=== PATIENT | female | born 1975 | race Hispanic/Latino ===

== ENCOUNTER 2019-11-18 08:04 | Emergency (ER) | payer OTHER, SELFPAY ==
[2019-11-18 08:15] VITALS: BP 146/88; PULSE 70; RESP 16; TEMP 36.2; O2SAT 99
--- NOTE | 2019-11-18 08:25 | ED.SKABFB ---
HPI - Skin/Abscess/Foreign Bdy General Chief complaint: Skin/Abscess/Foreign Body Stated complaint: Rash Time Seen by Provider: 11/18/19 08:19 Source: patient and RN notes reviewed Mode of arrival: ambulatory Limitations: no limitations History of Present Illness HPI narrative: Patient presents today with a 4-day history of pruritic rash to her extremities. It started out in the right antecubital fossa and forearm and has spread from there. No rash on the trunk or face. She has tried calamine lotion and hydrocortisone, which did provide some relief of itching. Denies shortness of breath or difficulty swallowing. Denies any new household products or known allergen exposure MD complaint: rash Related Data Home Medications Medication Instructions Recorded Confirmed No Home Medications 11/18/19 11/18/19 Allergies Allergy/AdvReac Type Severity Reaction Status Date / Time No Known Allergies Allergy Other Uncoded 11/18/19 08:20 Review of Systems Review of Systems: Narrative: CONSTITUTIONAL: Denies body aches, fever, chills, or sweats. EYES: Denies visual changes, redness, or discharge. ENT: Denies rhinorrhea, congestion, sore throat, or otalgia. CARDIOVASCULAR: Denies chest pain, palpitations, or edema. RESPIRATORY: Denies cough or dyspnea. GASTROINTESTINAL: Denies abdominal pain, nausea, vomiting, or diarrhea. GENITOURINARY: Denies dysuria or hematuria. SKIN: Denies wounds.+ Pruritic rash to extremities MUSCULOSKELETAL: Denies back pain, joint pain, or myalgia. NEUROLOGIC: Denies headache, numbness, tingling, or weakness. PSYCH: Denies depression or anxiety. PMFSH Past Medical History Medical History (Updated 11/18/19 @ 08:28 by Carrol Medina, BUDGET DIRECTOR, ) Delivery with history of Idiopathic pancreatitis Surgical History Surgical History (Updated 11/18/19 @ 08:27 by Carrol Medina, BUDGET DIRECTOR, ) History of cholecystectomy Social History Social History Gender identity (if verbalized by the patient): Female Comments At time of signature, I have reviewed and agree with nursing past medical, surgical, social and family history unless otherwise noted. Please see nursing chart for further information. There is no relevant family history pertinent to the presenting complaint Exam Narrative: Exam Narrative: GENERAL: Well-appearing, well-nourished, and in no acute distress. HEAD: Normocephalic, atraumatic. EYES: EOMI. No redness or drainage. Conjunctivae normal. ENT: Mucous membranes pink and moist. Nares clear. No rhinorrhea. TMs normal bilaterally. Throat normal. Uvula midline. NECK: Normal AROM. Supple. No lymphadenopathy. CHEST: No respiratory distress. Clear to auscultation. HEART: Regular rate and rhythm. No murmur appreciated. Normal peripheral pulses. ABDOMEN: Soft, nontender, nondistended, normal active bowel sounds. MUSCULOSKELETAL: No bony tenderness. EXTREMITIES: Normal range of motion. No edema. SKIN: Warm, dry. Faintly pink papular rash to bilateral forearms, upper arms, bilateral popliteal fossae. NEURO: No focal deficits. Alert and oriented x3. Gait steady. PSYCH: Normal affect. No signs of depression or anxiety. Course Vital Signs Vital signs: Vital Signs Temperature 97.1 F L 11/18/19 08:15 Pulse Rate 70 11/18/19 08:15 Respiratory Rate 16 11/18/19 08:15 Blood Pressure 146/88 H 11/18/19 08:15 Pulse Oximetry 99 11/18/19 08:15 Temperature 97.1 F L 11/18/19 08:15 Pulse Rate 70 11/18/19 08:15 Respiratory Rate 16 11/18/19 08:15 Blood Pressure 146/88 H 11/18/19 08:15 Pulse Oximetry 99 11/18/19 08:15 Reviewed. Pt has been instructed to follow up with her PCP regarding her elevated blood pressure today. MDM - Skin/Abscess/Foreign Bdy Differential Diagnosis Differential diagnosis: Likely abscess of skin or subcutaneous tissue, viral exanthem, urticaria, cellulitis, eczema, insect bites, impetigo and contact dermatitis Critical Care Ti
== END 2019-11-18 08:34 | disposition home or self-care (01) ==
PROVIDERS: Emergency Provider Nurse Practitioner
DX: L25.9 Unspecified contact dermatitis, unspecified cause (principal)
CPT/HCPCS: 99213; G0463

== ENCOUNTER 2021-07-09 11:27 | Emergency (ER) | payer OTHER, SELFPAY ==
[2021-07-09 11:39] VITALS: BP 125/91; PULSE 91; RESP 16; TEMP 36.7; O2SAT 99
--- NOTE | 2021-07-09 12:35 | ED.URI ---
HPI - URI/Sore Throat General Chief Complaint: Upper Respiratory Infection Stated Complaint: sore throat/cough/nasal congestion/henry/nausea Source: patient and family Mode of arrival: ambulatory Limitations: no limitations History of Present Illness HPI Narrative: Marla is a 45-year-old female patient who ambulated [facility] the [facility] today with complaint of nasal congestion, cough, and fever for 10 days. Patient states she had a sore throat that stopped last FridayJuly 03 . Patient has been taking NyQuil and [id number] cold medicines for symptoms without relief. Patient states she was feeling better then suddenly she is getting worse over the last two days. Patient had a negative Covid test this morning at the school. Patient denies shortness of breath. Patient denies ear pain. Patient states she is coughing up green mucus. MD elicited complaint: fever and cough Description of mucous: green Related Data Home Medications Medication Instructions Recorded Confirmed losartan 50 mg PO DAILY 07/09/21 07/09/21 metformin 500 mg PO DAILY 07/09/21 07/09/21 Allergies Allergy/AdvReac Type Severity Reaction Status Date / Time No Known Allergies Allergy Other Uncoded 07/09/21 11:46 Review of Systems Review of Systems: CONSTITUTIONAL: Denies body aches, chills, or sweats. + fever off and on EYES: Denies visual changes, redness, or discharge. ENT: Denies rhinorrhea, + congestion,+ sore throat,denies otalgia. CARDIOVASCULAR: Denies chest pain, palpitations, or edema. RESPIRATORY: + cough denies dyspnea. GASTROINTESTINAL: Denies abdominal pain, nausea, vomiting, or diarrhea. GENITOURINARY: Denies dysuria or hematuria. SKIN: Denies rash, itching, or wounds. MUSCULOSKELETAL: Denies back pain, joint pain, or myalgia. NEUROLOGIC: Denies headache, numbness, tingling, or weakness. PSYCH: Denies depression or anxiety. All systems reviewed & are unremarkable except as noted in HPI and below PMFSH Past Medical History Medical History Delivery with history of Idiopathic pancreatitis Surgical History Surgical History History of cholecystectomy Social History Social History Gender identity (if verbalized by the patient): Female Comments At time of signature, I have reviewed and agree with nursing past medical, surgical, social and family history unless otherwise noted. Please see nursing chart for further information. There is no relevant family history pertinent to the presenting complaint Exam Narrative: GENERAL: Well-appearing, well-nourished, and in no acute distress. HEAD: Normocephalic, atraumatic. EYES: EOMI. No redness or drainage. Conjunctivae normal. ENT: Mucous membranes pink and moist. Nares erythemic, boggy; clear rhinorrhea. TMs fluid filled, mild bulging, no erythema. Throat erythematous, post nasal drainage clear noted. Uvula midline; pain with palpation to left maxillary and frontal sinus, allergic shiners noted. NECK: Normal AROM. Supple. anterior cervical lymphadenopathy. CHEST: No respiratory distress. Clear to auscultation. MUSCULOSKELETAL: No bony tenderness. EXTREMITIES: Normal range of motion. No edema. SKIN: Warm, dry, no rash. Capillary refill normal. Normal skin turgor. NEURO: No focal deficits. Alert and oriented x3. Gait steady. PSYCH: Normal affect. No signs of depression or anxiety. Course Vital Signs Vital signs: Vital Signs Temperature 36.7 C 07/09/21 11:39 Pulse Rate 91 07/09/21 11:39 Respiratory Rate 16 07/09/21 11:39 Blood Pressure 125/91 H 07/09/21 11:39 Pulse Oximetry 99 07/09/21 11:39 Temperature 36.7 C 07/09/21 11:39 Pulse Rate 91 07/09/21 11:39 Respiratory Rate 16 07/09/21 11:39 Blood Pressure 125/91 H 07/09/21 11:39 Pulse Oximetry 99 07/09/21
== END 2021-07-09 12:50 | disposition home or self-care (01) ==
PROVIDERS: Emergency Provider Nurse Practitioner Family; PCP Physician Assistant
DX: J01.00 Acute maxillary sinusitis, unspecified (principal)
CPT/HCPCS: 99213; G0463

== ENCOUNTER 2021-11-11 15:31 | Emergency (ER) | payer OTHER, SELFPAY ==
--- NOTE | 2021-11-11 15:40 | ED.URI ---
HPI - URI/Sore Throat General Chief Complaint: Upper Respiratory Infection Stated Complaint: Cough,Wheezing Time Seen by Provider: 11/11/21 15:40 Source: patient and RN notes reviewed History of Present Illness HPI Narrative: Patient is a 46-year-old female who presents the urgent care with complaints of cough, runny nose, postnasal drainage and wheezing. Patient states that started on October 31 and her employer wanted her to get checked out . Patient states that everyone in the family has gone through cold-like symptoms. States that she has had intermittent low-grade fevers. Patient has been taking Tylenol and ibuprofen intermittently. Patient does have a history of childhood asthma which seems to worsen when she has upper respiratory infections. States that she feels she is wheezing at night. Denies of any difficulty breathing. No other acute complaints. No acute distress noted. Patient aware of the plan of care. Some parts of this dictation were generated by voice recognition software and may contain typographical and/or grammatical inaccuracies. Related Data Home Medications Medication Instructions Recorded Confirmed losartan 50 mg PO DAILY 07/09/21 11/11/21 metformin 1,000 mg PO BID 07/09/21 11/11/21 Allergies Allergy/AdvReac Type Severity Reaction Status Date / Time No Known Allergies Allergy Other Uncoded 07/09/21 11:46 Review of Systems Review of Systems: CONSTITUTIONAL: Reports of intermittent low-grade fevers EYES: Denies visual changes, redness, or discharge. ENT: Reports of rhinorrhea and postnasal drainage CARDIOVASCULAR: Denies chest pain, palpitations, or edema. RESPIRATORY: Reports of cough with wheezing GASTROINTESTINAL: Denies abdominal pain, nausea, vomiting, or diarrhea. GENITOURINARY: Denies dysuria or hematuria. SKIN: Denies rash or itching. MUSCULOSKELETAL: Denies back pain, joint pain, or myalgia. NEUROLOGIC: Denies headache, numbness, or weakness. PSYCHIATRIC: Denies anxiety or depression. All other systems reviewed are negative, except as documented in HPI. [facility] Past Medical History Medical History Delivery with history of Idiopathic pancreatitis Surgical History Surgical History History of cholecystectomy Social History Social History Gender identity (if verbalized by the patient): Female Comments At the time of my signature, I reviewed and agree with the nursing past medical, surgical, social, and family history. There is no relevant family history pertinent to the patient complaint. Exam Narrative: GENERAL: This is a well-nourished, well-developed patient, in no apparent distress. HEAD: normocephalic, atraumatic. Frontal sinus tenderness EYES: PERRL. Sclera clear/white. Vision is grossly intact. EARS: External ears normal, auditory canals clear and without drainage, TMs normal without perforation. Hearing grossly intact. NOSE: External nose normal with no obvious nasal discharge, nares without redness, no rhinorrhea. THROAT: Mucous membranes moist, posterior pharynx clear. Moderate postnasal drainage NECK: Neck supple, non-tender without lymphadenopathy, masses or thyromegaly. CARDIOVASCULAR: Regular rate and rhythm without murmurs, gallops, or rubs. RESPIRATORY: Clear to auscultation. Breath sounds equal bilaterally. No wheezes, rales, or rhonchi. SKIN: warm, intact with no suspicious lesions or rash, good texture and turgor. NEURO: awake, alert, and oriented to person, place and time. There were no obvious focal neurologic abnormalities. EXTREMITIES: No clubbing, cyanosis, or edema. Course Course Level of Care: [facility] Visit Vital Signs Vital signs: Vital Signs Temperature 98.8 F 11/11/21 15:44 Pulse Rate 96 11/11/21 15:44 Respiratory Rate 16 11/11/21 15:44 Blood Pressure 117
[2021-11-11 15:44] VITALS: BP 117/76; PULSE 96; RESP 16; TEMP 37.1; O2SAT 100
== END 2021-11-11 15:58 | disposition home or self-care (01) ==
PROVIDERS: Emergency Provider Nurse Practitioner Family; PCP Physician Assistant
DX: J40 Bronchitis, not specified as acute or chronic (principal); J06.9 Acute upper respiratory infection, unspecified; I10 Essential (primary) hypertension; E11.9 Type 2 diabetes mellitus without complications
CPT/HCPCS: 99213; G0463

== ENCOUNTER → 2022-11-22 09:34 | Outpatient (CLI) | payer OTHER, SELFPAY ==
--- NOTE | ~2022-11-22 | US_ITS ---
EXAMINATION: US pelvic complete DATE: 11/22/2022 10:22 INDICATION: Pelvic and abdominal pain. Fever. TECHNIQUE: Multiple transabdominal sonographic images of the pelvis were obtained. COMPARISON: CT abdomen and pelvis 06/26/2019 FINDINGS: The uterus measures 9.9 x 5.3 x 5.0 cm. There is no free fluid in the pelvis. The endometrial complex measures 6 in thickness. The ovaries are not visualized. IMPRESSION: 1. Normal uterus. 2. Ovaries not visualized. 3. Appendix not identified. Reviewed, dictated and finalized at location A. 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
--- NOTE | ~2022-11-22 | US_ITS ---
US abdomen limited INDICATION: Pyrexia. Status post cholecystectomy. Abdomen and pelvic pain. PROCEDURE: Realtime right upper abdominal ultrasound. COMPARISON: Ultrasound dated 06/27/2019 FINDINGS: The pancreas is normal without focal mass or pancreatic ductal dilation. Liver echotexture is normal without focal mass or intrahepatic biliary dilatation. There is normal directional flow i n the portal vein. Gallbladder surgically absent. Common bile duct measures 5 mm. IMPRESSION: 1: Unremarkable limited abdominal ultrasound. 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
== END ==
PROVIDERS: PCP Physician Assistant; Visit Provider Physician Assistant
DX: R50.9 Fever, unspecified (principal)
CPT/HCPCS: 76705; 76856

== ENCOUNTER 2023-05-11 15:29 | Emergency (ER) | payer BC, SELFPAY ==
[2023-05-11 15:37] VITALS: BP 117/67; PULSE 75; RESP 16; TEMP 36.7; O2SAT 99
--- NOTE | 2023-05-11 15:49 | ED.SKABFB ---
HPI - Skin/Abscess/Foreign Bdy General Chief complaint: Skin/Abscess/Foreign Body Stated complaint: Insect Bite Time Seen by Provider: 05/11/23 15:45 Source: patient Mode of arrival: ambulatory Limitations: no limitations History of Present Illness HPI narrative: Marla is a 47-year-old female patient presenting to the clinic today with complaints of an insect bite to her right upper leg. She reports that this occurred yesterday. Said the area is very itchy and is mildly painful when she is walking. Related Data Home Medications Medication Instructions Recorded Confirmed empagliflozin 25 mg tablet mg 05/11/23 05/11/23 (Jardiance) Allergies Allergy/AdvReac Type Severity Reaction Status Date / Time No Known Allergies Allergy Other Uncoded 05/11/23 15:50 Review of Systems Review of Systems: Pertinent positives per HPI. Patient denies any fever, chills, rash, headache, visual changes, dizziness, cough, runny nose, sore throat, shortness of breath, chest pain, palpitations, nausea, vomiting, diarrhea, constipation, abdominal pain, or any urinary issues. PMFSH Past Medical History Medical History Delivery with history of Idiopathic pancreatitis Surgical History Surgical History History of cholecystectomy Social History Social History Gender identity (if verbalized by the patient): Female Comments At the time of my signature, I reviewed and agree with the nursing past medical, surgical, social, and family history. There is no relevant family history pertinent to the patient complaint. Exam Narrative: General: Well-developed, well nourished, in no apparent distress Head: Normocephalic, atraumatic. Cardio: Regular rate and rhythm, s1 and s2 normal, no murmur appreciated. Resp: Clear to auscultation bilaterally, no rhonchi, rales, wheezing or rubs. Integumentary: [place], warm, and dry, insect sting to the right upper anterior distal leg just above knee-redness and swelling with induration measuring 14 cm by 14cm Course Course Emergency Course: Portions of this record may have been created with voice recognition software. Level of Care: [facility] Visit Vital Signs Vital signs: Vital Signs Temperature 36.7 C 05/11/23 15:37 Pulse Rate 75 05/11/23 15:37 Respiratory Rate 16 05/11/23 15:37 Blood Pressure 117/67 05/11/23 15:37 Pulse Oximetry 99 05/11/23 15:37 Oxygen Delivery Room Air 05/11/23 15:37 Temperature 36.7 C 05/11/23 15:37 Pulse Rate 75 05/11/23 15:37 Respiratory Rate 16 05/11/23 15:37 Blood Pressure 117/67 05/11/23 15:37 Pulse Oximetry 99 05/11/23 15:37 Oxygen Delivery Room Air 05/11/23 15:37 Vital signs reviewed MDM - Skin/Abscess/Foreign Bdy MDM Narrative Medical decision making narrative: At the time of visit patient is resting on the exam table. I suspect patient has a allergic reaction to an insect sting/bite. Will send in prescription for some prednisone and triamcinolone cream. Supportive measures were discussed with the patient she voiced understanding discharge instructions and agrees to treatment plan. Differential Diagnosis Differential diagnosis: Likely abscess of skin or subcutaneous tissue, cellulitis, eczema, insect bites, impetigo and contact dermatitis Discharge Plan Discharge Clinical Impression: Allergic reaction to insect sting Qualifiers: Encounter type: initial encounter Injury intent: accidental or unintentional Qualified Code(s): T63.481A - Toxic effect of venom of other arthropod, accidental (unintentional), initial encounter Patient Disposition: Home, Self-Care Condition: Stable Instructions: Antibiotic Form, Insect Bite or Sting (ED), General Allergic Reaction (ED) Additional Instructions: Apply t
== END 2023-05-11 15:58 | disposition home or self-care (01) ==
PROVIDERS: Emergency Provider Nurse Practitioner Family; PCP Physician Assistant
DX: T63.481A Toxic effect of venom of other arthropod, accidental (unintentional), initial encounter (principal)
CPT/HCPCS: 99213; G0463

== ENCOUNTER → 2023-10-01 13:31 | Outpatient (CLI) | payer OTHER, SELFPAY ==
--- NOTE | ~2023-10-01 | MM_ITS ---
EXAMINATION: MM screening iron BI w freddy HISTORY: Screening mammogram TECHNIQUE: Craniocaudal and mediolateral oblique 3-D tomosynthesis images were obtained and synthetic 2-D images were generated. Bilateral rotated lateral CC views. CAD analysis was submitted and interp reted. COMPARISON: No prior mammogram is available for comparison at this institution. BREAST PARENCHYMAL COMPOSITION: The breasts are heterogeneously dense, which may obscure small masses . FINDINGS: There is no evidence of suspicious mass, calcification, or architectural distortion to sugg est malignancy in either breast. IMPRESSION: 1. No mammographic evidence of malignancy. 2. Recommend routine screening mammography in one year. 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
== END ==
PROVIDERS: PCP Physician Assistant; Visit Provider Physician Assistant
DX: Z12.31 Encounter for screening mammogram for malignant neoplasm of breast (principal)
CPT/HCPCS: 77063; 77067

== ENCOUNTER 2023-10-21 13:15 | Outpatient (RCR) | payer OTHER, SELFPAY ==
--- NOTE | 2023-09-30 13:31 | OPREHPOC ---
Outpatient Therapy Plan of Care This is a Multidisciplinary Plan of Care that may contain components documented by all disciplines (PT, OT, and ST.) PT Problem 1 PT Problem #1 Knowledge Deficit PT Goal 1 Goal 1* indep with HEP 2* demonstrate correct position and body mechanics with exercises PT Problem 2 PT Problem #2 Pain PT Goal 1 Goal 1* pt report pain 4/10 at worst 2* pt report able to run 5K without an increase in pain 3* with sleeping, awaken 1x/night due to pain PT Problem 3 PT Problem #3 Impaired Strength PT Goal 1 Goal improve R scapular/thoracic strength to improve position of GH joint and decrease pain 1* pt stand with shoulders in correct alignment 2* prone scapular adduction x 20 reps with arm overhead 3* pt report able to do one baby feeding, without an increase in her pain
--- NOTE | 2023-09-30 13:31 | PTOPEVAL1 ---
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; she is tall and have to lean over; document in mobile computer station without UE support and has a high seat, so feel like she is leaning forward when typing; Reported Pain Level Pain Score Self Report R shoulder pain Additional Pain Score Comments pain range in the past week 0-9/10; posterior R shoulder; hurts so bad, have to stop running and move shoulder to get it to stop hurting; intermittent to elbow; R hand dominant increase pain: running, lie on R side, use arm, working and holding/caring for babies decrease pain: rest, ice, not use arm awaken from sleep due to pain 1-2x/night when roll towards R side; use a body pillow and lie on her L side to help the pain; saw a chiropractor last year for this; Assessment PT Clinical Summary Marla has the diagnosis of R shoulder pain. She reports onset about 1 year ago, increase with work and running. 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 She reports sleep and activity level is disrupted due to shoulder pain. With the evaluation: she has tenderness over bicepital groove and poor standing position of shoulder and trunk--rounded posture; Her R shoulder active ranges are WNL, with weakness over posterior shoulder/scapula. When running, she holds her elbow flexed and shoulder rounded, causing bicept tendonitis. Skilled PT is indicated for treatment of R shoulder impingement syndrome and biceps tendonitis. Modalities for pain and spasms,
--- NOTE | 2023-10-13 15:32 | PCPTNOTE ---
Patient cancelled today secondary to weather conditions.
--- NOTE | 2023-10-17 14:53 | PCPTNOTE ---
Deleted note set up to see pt and pt no showed visit.
--- NOTE | 2023-10-24 09:18 | PCPTNOTE ---
pt did not show for today's reeval appt; called pt and left voice message to call and reschedule if she needs additional PT, otherwise, will be d/c from PT.
--- NOTE | 2023-11-14 10:59 | PTOPDC ---
Assessment and note entered by Dacia Sun, PT Discharge Information Assessment Status Discharge - Pt Not Present Diagnosis R shoulder pain Onset about 1 year ago Assessment PT Clinical Summary Marla received the PT eval on Sep 30 and one treatment session. She called/canceled 1 and did not show for 2 appointments. She will be discharged at this time from PT services. The goals were not addressed. Plan of Care PT Services Indicated No
== END 2023-11-14 11:30 | disposition home or self-care (01) ==
LOC: ANHPT 13:15
PROVIDERS: Visit Provider Physician Assistant
DX: S46.911D Strain of unspecified muscle, fascia and tendon at shoulder and upper arm level, right arm, subsequent encounter (principal)
CPT/HCPCS: 97110; 97140; 97161; 97530; 99199

== ENCOUNTER 2024-09-01 08:53 | Emergency (ER) | payer OTHER, SELFPAY ==
--- NOTE | ~2024-09-01 | XR_ITS ---
XR abdomen/kub 1V Ordering provider: Nohemy Coombs NP History: . c/f kidney stone . Comparison: None. FINDINGS: BOWEL: Nonobstructive bowel gas pattern. ORGANOMEGALY: None. SIGNIFICANT PATHOLOGIC CALCIFICATIONS: Multiple left kidney stones. Possibility of a stone in the lef t upper ureter is not excluded. Follow-up advised. OTHER: No free air is seen under the diaphragm. IMPRESSION: NO ACUTE ABDOMINAL FINDINGS. Multiple left kidney stones with highly suggestive stone in the left upper ureter. Reviewed, dictated and finalized at location A. MANAGER IMPRESSION: NO ACUTE ABDOMINAL FINDINGS. Multiple left kidney stones with highly suggestive stone in the left upper uret er.
[2024-09-01 09:09] VITALS: BP 119/76; PULSE 67; RESP 19; TEMP 36.2; O2SAT 100
--- NOTE | 2024-09-01 09:56 | ED_ITS ---
HPI - Female Genitourinary General Stated complaint: urinary issue Time Seen by Provider: 09/01/24 09:55 Source: patient and RN notes reviewed Mode of arrival: ambulatory Limitations: no limitations History of Present Illness HPI Narrative: 48-year-old female presents with concern of for discomfort with urination, suprapubic pressure, chills. She reports symptoms for 2 days. Reports she finished Bactrim 1 week ago for urinary tract infection. Reports ports her symptoms with that infection were resolved. She reports history kidney stone last year with similar symptoms that she is having right now. She denies fever, body aches, nausea, vomiting, back pain, flank. She is currently on her menstrual cycle MD elicited complaint: UTI Related Data Home Medications ?Medication ?Instructions ?Recorded ?Confirmed ?Last Taken ?Type empagliflozin 25 mg tablet mg 05/11/23 05/11/23 Unknown History (Jardiance) Allergies Allergy/AdvReac Type Severity Reaction Status Date / Time No Known Allergies Allergy Other Uncoded 05/11/23 15:50 Review of Systems Review of Systems: CONSTITUTIONAL: Denies malaise, chills, sweats, or fever. CARDIOVASCULAR: Denies chest pain, palpitations, or edema. RESPIRATORY: Denies cough or dyspnea. GASTROINTESTINAL: Denies abdominal pain, nausea, vomiting, diarrhea GENITOURINARY: Reports dysuria, suprapubic pressure. Denies flank pain or hematuria. SKIN: Denies rash or itching. MUSCULOSKELETAL: Denies back pain or myalgia. All systems reviewed & are unremarkable except as noted in HPI and below PMFSH Past Medical History Medical History Delivery with history of Idiopathic pancreatitis Surgical History Surgical History History of cholecystectomy Social History Social History Gender identity (if verbalized by the patient): Female Comments At time of signature, agree with nursing past medical, surgical, social and family history. There is no relevant family history pertinent to the presenting complaint Exam Narrative: GENERAL: Well-appearing, well-nourished, and in no acute distress. HEAD: Normocephalic. EYES: PERRLA, conjunctivae clear. NECK: Supple. No lymphadenopathy CHEST: Clear to auscultation. No respiratory distress. HEART: Regular rate and rhythm. ABDOMEN: Soft, nontender upon palpation, nondistended, normal active bowel sounds, no palpable or pulsatile masses, no guarding. No CVA tenderness SKIN: Warm, dry, no rash. NEURO: Alert and oriented x3. PSYCH: Normal mood and affect Course Course Emergency Course: Patient is aware of diagnosis, understands and agrees to treatment plan. Anticipatory guidance given. Patient agrees to follow-up as directed and is aware of reasons to seek care at the emergency department. Portions of this record may have been created with voice recognition software Level of Care: Express Care Visit Vital Signs Vital signs: Vital Signs Temperature 97.1 F L 09/01/24 09:09 Pulse Rate 67 09/01/24 09:09 Respiratory Rate 19 09/01/24 09:09 Blood Pressure 119/76 09/01/24 09:09 Pulse Oximetry 100 09/01/24 09:09 Oxygen Delivery Room Air 09/01/24 09:09 Temperature 97.1 F L 09/01/24 09:09 Pulse Rate 67 09/01/24 09:09 Respiratory Rate 19 09/01/24 09:09 Blood Pressure 119/76 09/01/24 09:09 Pulse Oximetry 100 09/01/24 09:09 Oxygen Delivery Room Air 09/01/24 09:09 Reviewed. MDM - Female Genitourinary MDM Narrative Medical decision making narrative: Exam findings and UA show no acute concerns or changes; patient is non-toxic appearing and is in no distress. Patient is appropriate for outpatient treatment and follow-up. Differential Diagnosis Differential diagnosis: Likely urinary tract infection and cystitis Critical Care Time Critical Care Time Critical Care Time: No Discharge Plan Discharge Clinical Impression: Ureter, calculus Patient Disposition: Home, Self-Care Condition: Stable Instructions: How to Strain Your Urine (ED) Additional Instructions: Take medication as prescribe. Follow-up with Urology, call for appointment Strain your urine per instruction Your urine is being sent for culture, if there is any bacteria identified you will receive a phone call in an appropriate antibiotic will be prescribed If your symptoms worsen or have any other urgent concerns please go to the emergency room Patient Language: Korean Prescriptions: New hydrocodone-acetaminophen 5-325 mg tablet 1 tablet PO Q6H PRN (Reason: pain) Qty: 8 0RF tamsulosin [Flomax] 0.4 mg capsule 0.4 mg PO DAILY Qty: 5 0RF ondansetron 4 mg tablet,disintegrating 4 mg PO Q8H PRN (Reason: nausea and vomiting) Qty: 10 0RF No Action Jardiance 25 mg tablet prednisone 20 mg tablet 40 mg PO DAILY 5 Days Qty: 10 0RF triamcinolone acetonide 0.1 % cream 1 applic topical BID 7 Days Qty: 30 0RF Follow-up/Referrals: Orquidea,TANVI Sevilla [Primary Care Provider] - Jennifer Epps MD [Physician] - (ureter stone) Time of Disposition: 10:39
== END 2024-09-01 10:00 | disposition home or self-care (01) ==
PROVIDERS: Emergency Provider Nurse Practitioner; PCP Physician Assistant
DX: N20.1 Calculus of ureter (principal); N39.0 Urinary tract infection, site not specified; B95.4 Other streptococcus as the cause of diseases classified elsewhere
CPT/HCPCS: 74018; 87086; 99213; G0463

== ENCOUNTER 2024-09-06 08:20 | Emergency (ER) | payer OTHER, SELFPAY ==
[2024-09-06 08:25] VITALS: BP 125/87; PULSE 65; RESP 16; TEMP 36.4; O2SAT 100
--- NOTE | 2024-09-06 08:39 | ED.URI ---
HPI - URI/Sore Throat General Chief Complaint: Upper Respiratory Infection Stated Complaint: Sore Throat Time Seen by Provider: 09/06/24 08:40 Source: patient Mode of arrival: ambulatory Limitations: no limitations History of Present Illness HPI Narrative: 48-year-old female presents with complaint of sore throat, headache, body aches and chills, fatigue starting yesterday. Patient reports strep throat exposure from her daughter. Patient is currently taking Cipro for a urinary tract infection. Afebrile. All systems reviewed and negative except as noted above. Related Data Home Medications ?Medication ?Instructions ?Recorded ?Confirmed ?Last Taken ?Type empagliflozin 25 mg tablet mg 05/11/23 05/11/23 Unknown History (Jardiance) losartan 50 mg tablet mg 09/06/24 Unknown History Allergies Allergy/AdvReac Type Severity Reaction Status Date / Time No Known Allergies Allergy Other Uncoded 09/06/24 08:36 Review of Systems Review of Systems: CONSTITUTIONAL: Denies fever, sweats. Reports fatigue, chills. EYES: Denies visual changes, redness, or discharge. ENT: Denies rhinorrhea, congestion. Reports sore throat. Denies otalgia. CARDIOVASCULAR: Denies chest pain, palpitations, or edema. RESPIRATORY: Denies cough or dyspnea. GASTROINTESTINAL: Denies abdominal pain, nausea, vomiting, or diarrhea. GENITOURINARY: Denies dysuria or hematuria. SKIN: Denies rash or itching. MUSCULOSKELETAL: Denies back pain, joint pain, or myalgia. NEUROLOGIC: Denies headache, numbness, or weakness. PSYCHIATRIC: Denies anxiety or depression. All other systems reviewed are negative, except as documented in HPI. [facility] Past Medical History Medical History Delivery with history of Idiopathic pancreatitis Surgical History Surgical History History of cholecystectomy Social History Social History Gender identity (if verbalized by the patient): Female Comments At time of signature, agree with nursing past medical, surgical, social and family history. There is no relevant family history pertinent to the presenting complaint. Exam Narrative: GENERAL: This is a well-nourished, well-developed patient, patient ill-appearing but in no acute distress HEAD: normocephalic, atraumatic. EYES: PERRL. Sclera clear/white. Vision is grossly intact. EARS: External ears normal, auditory canals clear and without drainage, TMs normal without perforation. Hearing grossly intact. NOSE: External nose normal with no obvious nasal discharge, nares without redness, no rhinorrhea. THROAT: Mucous membranes moist, erythema to posterior pharynx with swelling, tonsils 1+ bilaterally without exudates NECK: Neck supple, non-tender without lymphadenopathy, masses or thyromegaly. CARDIOVASCULAR: Regular rate and rhythm without murmurs, gallops, or rubs. RESPIRATORY: Clear to auscultation. Breath sounds equal bilaterally. No wheezes, rales, or rhonchi. SKIN: warm, Dry, intact with no suspicious lesions or rash, good texture and turgor. NEURO: awake, alert, and oriented to person, place and time. There were no obvious focal neurologic abnormalities. EXTREMITIES: No joint tenderness, effusion, or edema noted. Course Course Level of Care: Express Care Visit Vital Signs Vital signs: Vital Signs Temperature 36.4 C L 09/06/24 08:25 Pulse Rate 65 09/06/24 08:25 Respiratory Rate 16 09/06/24 08:25 Blood Pressure 125/87 09/06/24 08:25 Pulse Oximetry 100 09/06/24 08:25 Oxygen Delivery Room Air 09/06/24 08:25 Temperature 36.4 C L 09/06/24 08:25 Pulse Rate 65 09/06/24 08:25 Respiratory Rate 16 09/06/24 08:25 Blood Pressure 125/87 09/06/24 08:25 Pulse Oximetry 100 09/06/24 08:25 Oxygen Delivery Room Air 09/06/24 08:25 Reviewed MDM - URI/Sore Throat MDM Narrative Medical decision making narrative: Negative strep test. Patient is currently on ciprofloxacin for urinary tract infection which may have affected rapid strep test results. Will treat patient with amoxicillin due to patient's symptoms and exposure to strep throat. Patient leaving for vacation to [place] tomorrow and be when strep culture results. Patient well-appearing, nontoxic. Patient is aware of diagnosis, understands and agrees to treatment plan. Anticipatory guidance given. Patient agrees to follow-up as directed and is aware of reasons to seek care at the emergency department. Portions of this record may have been created with voice recognition software Lab Data Labs: Lab Results 09/06/24 Range/Units 08:27 POC Grp A Strep Screen Negative (Negative) Discharge Plan Discharge Clinical Impression: Acute pharyngitis Qualifiers: Pharyngitis/tonsillitis etiology: unspecified etiology Qualified Code(s): J02.9 - Acute pharyngitis, unspecified Patient Disposition: Home, Self-Care Condition: Stable Instructions: Antibiotic Form, Strep Throat (ED) Additional Instructions: Take antibiotic as prescribed to treat strep throat. Change toothbrush after taking antibiotic for 24 hours. Take ibuprofen or Tylenol every 6-8 hours as needed for pain and fever. Drink at least 64 oz of water a day. Follow-up with your primary care physician if symptoms are not improving. Patient Language: Syriac Prescriptions: New amoxicillin 500 mg tablet 500 mg PO Q12H 10 Days Qty: 20 0RF fluconazole 150 mg tablet 150 mg PO ONCE 1 Days Qty: 1 0RF No Action losartan 50 mg tablet hydrocodone-acetaminophen 5-325 mg tablet 1 tablet PO Q6H PRN (Reason: pain) Qty: 8 0RF tamsulosin [Flomax] 0.4 mg capsule 0.4 mg PO DAILY Qty: 5 0RF ondansetron 4 mg tablet,disintegrating 4 mg PO Q8H PRN (Reason: nausea and vomiting) Qty: 10 0RF ciprofloxacin HCl 500 mg tablet 500 mg PO Q12H 5 Days Qty: 10 0RF Jardiance 25 mg tablet triamcinolone acetonide 0.1 % cream 1 applic topical BID 7 Days Qty: 30 0RF Follow-up/Referrals: PHYSICIAN,MACHINE [employer] SUPERVISOR [Primary Care Provider] - Time of Disposition: 08:46
[2024-09-06 08:43] LABS: EDSTREPNEGPOS1 Negative (Negative)
== END 2024-09-06 08:49 | disposition home or self-care (01) ==
PROVIDERS: Emergency Provider Nurse Practitioner Family
DX: J02.9 Acute pharyngitis, unspecified (principal)
CPT/HCPCS: 87081; 87880; 99213; G0463

== ENCOUNTER 2025-04-22 15:23 | Emergency (ER) | payer OTHER, SELFPAY ==
--- NOTE | 2025-04-22 15:29 | ED.SKABFB ---
HPI - Skin/Abscess/Foreign Bdy General Chief complaint: Skin/Abscess/Foreign Body Stated complaint: Rash RT arm Time Seen by Provider: 04/22/25 15:38 Source: patient and RN notes reviewed Mode of arrival: ambulatory Limitations: no limitations History of Present Illness HPI narrative: 49-year-old female presents with concern for rash on her right arm. Reports she went camping over the weekend, came home Friday and she noticed a rash on the upper right arm. Reports since then it is spread to the lower arm. She reports she has had a history of bad reactions to poison ritu. complaint: rash Related Data Home Medications ?Medication ?Instructions ?Recorded ?Confirmed ?Last Taken ?Type empagliflozin 25 mg tablet 25 mg PO DAILY 05/11/23 09/06/24 Unknown History (Jardiance) losartan 50 mg tablet 50 mg PO DAILY 09/06/24 09/06/24 Unknown History metformin 1,000 mg tablet mg 04/22/25 Unknown History Allergies Allergy/AdvReac Type Severity Reaction Status Date / Time No Known Allergies Allergy Other Uncoded 04/22/25 15:42 Review of Systems Review of Systems: CONSTITUTIONAL: Denies malaise, chills, sweats, or fever. EYES: Denies redness, or discharge. ENT: Denies rhinorrhea, congestion, swollen lips, swollen tongue CARDIOVASCULAR: Denies chest pain, palpitations, or edema. RESPIRATORY: Denies cough or dyspnea. GASTROINTESTINAL: Denies abdominal pain, nausea, vomiting SKIN: Reports itchy rash to her right arm MUSCULOSKELETAL: Denies joint pain or myalgia. NEUROLOGIC: Denies headache. All systems reviewed & are unremarkable except as noted in HPI and below PMFSH Past Medical History Medical History Delivery with history of Idiopathic pancreatitis Surgical History Surgical History History of cholecystectomy Social History Social History Gender identity (if verbalized by the patient): Female Comments At time of signature, agree with nursing past medical, surgical, social and family history. There is no relevant family history pertinent to the presenting complaint Exam Narrative: GENERAL: Well-appearing, well-nourished, and in no acute distress. HEAD: Normocephalic, atraumatic. EYES: PERRLA, conjunctivae clear, and EOMI. ENT: Mucous membranes moist. Oropharynx without edema, erythema or lesions. NECK: Supple. No lymphadenopathy CHEST: Clear to auscultation. No respiratory distress. HEART: Regular rate and rhythm. SKIN: Warm, dry. Scattered patches of papules noted to the right arm, some discrete and some confluent with scattered scabbing NEURO: Alert and oriented x3. PSYCH: Normal mood and affect Course Course Emergency Course: Patient is aware of diagnosis, understands and agrees to treatment plan. Anticipatory guidance given. Patient agrees to follow-up as directed and is aware of reasons to seek care at the emergency department. Portions of this record may have been created with voice recognition software Level of Care: Express Care Visit Vital Signs Vital signs: Reviewed. MDM - Skin/Abscess/Foreign Bdy MDM Narrative Medical decision making narrative: Does not appear at this time to be erythema multiforme, bullous, SJS, TEN; no evidence at this time to suggest RMSF, endocarditis or Lyme disease; patient looks well, nontoxic and is tolerating oral intake; no neurologic signs or symptoms; no headache, photophobia or neck pain; afebrile; appropriate for initial outpatient treatment; discussed the importance of follow-up, patient agrees; question, viral exanthema, contact dermatitis, allergic dermatitis, eczema, urticaria, scabies. No soft palate or uvula edema, no tongue, lip edema or other mucosal involvement, no respiratory compromise, no stridor, no wheezing, no wheezing, no history of syncope, no hypotension, no nausea, vomiting, or diarrhea. Instructed patient to go to nearest ER immediately for any worsening symptoms including but not limited to: fever, spreading rash, pain, sore throat, headache, dizziness, chest pain, trouble breathing, or any symptoms concerning to the patient. Critical Care Time Critical Care Time Critical Care Time: No Discharge Plan Discharge Clinical Impression: Contact dermatitis Patient Disposition: Home Condition: Stable Instructions: Poison Ritu (ED) Additional Instructions: Prevention is always better than treatment. Learn to identify poison ritu, oak, and sumac and avoid it. Wear long sleeves, long pants, shoes, and socks. If you touched the plant, try to keep your hands away from your eyes, mouth, and face. Wash the skin thoroughly with soap and cool water as soon as possible. Scrub under the fingernails with a brush to prevent spreading of the resin to other parts of the body by touching or scratching. Remember to wash any clothing with soap and hot water as the resin can persist for many months and cause further dermatitis. You should NOT use antihistamine creams or lotions, anesthetic creams containing benzocaine, or antibiotic creams containing neomycin or bacitracin to the skin. These creams or ointments could make the rash worse. Antihistamines do not help to relieve itching caused by poison ritu dermatitis. For some people, adding oatmeal to a bath, applying cool wet compresses, and applying calamine lotion may help to relieve itching. Once the blisters begin weeping fluid, astringents containing aluminum acetate (Burow's solution) and [place] may help to relieve the rash. IF symptoms get worse to follow up with your primary care provider or seek ER visit if you developing difficulty breathing, weakness, dizziness. Patient Language: Vietnamese Prescriptions: New triamcinolone acetonide 0.1 % cream 1 applic TOPICAL BID 7 Days Qty: 80 0RF methylprednisolone [Medrol (Beto)] 4 mg tablets,dose pack See Rx Instructions .ROUTE .COMPLEX Qty: 21 0RF Rx Instructions: orally per package directions No Action metformin 1,000 mg tablet losartan 50 mg tablet 50 mg PO DAILY amoxicillin 500 mg tablet 500 mg PO Q12H 10 Days Qty: 20 0RF fluconazole 150 mg tablet 150 mg PO ONCE 1 Days Qty: 1 0RF ciprofloxacin HCl 500 mg tablet 500 mg PO Q12H 5 Days Qty: 10 0RF Jardiance 25 mg tablet 25 mg PO DAILY Follow-up/Referrals: Orquidea,TANVI Sevilla [Primary Care Provider] - Time of Disposition: 15:46
== END 2025-04-22 15:52 | disposition home or self-care (01) ==
PROVIDERS: Emergency Provider Nurse Practitioner; PCP Physician Assistant
DX: L25.9 Unspecified contact dermatitis, unspecified cause (principal)
CPT/HCPCS: 99213; G0463

== ENCOUNTER 2025-07-02 08:12 | Emergency (ER) | payer OTHER, SELFPAY ==
[2025-07-02 08:20] VITALS: BP 124/77; PULSE 95; RESP 16; TEMP 36.7; O2SAT 100
--- NOTE | 2025-07-02 08:51 | ED.GENADULT ---
HPI - General Adult General Chief complaint: Urogenital-Female Stated complaint: urinary irritation Source: patient Mode of arrival: ambulatory Limitations: no limitations History of Present Illness HPI narrative: Pt presents with concerns that she may have a UTI. Yesterday she developed some pelvic pressure and dysuria. She states she has had similar symptoms in the past. She has been evaluated on several occasions at which time her initial urinalysis is not indicative of a UTI. She has followed up thereafter and has evidence of infection on subsequent visits. Last night she experienced chills. She denies any fever, nausea, vomiting, vaginal bleeding or discharge. She states she had a transvaginal ultrasound two days prior to symptom onset to investigate whether she qualifies for uterine ablation due to episodes of heavy menstruation. Related Data Home Medications ?Medication ?Instructions ?Recorded ?Confirmed ?Last Taken ?Type losartan 50 mg tablet 50 mg PO DAILY 09/06/24 09/06/24 Unknown History metformin 1,000 mg tablet 1,000 mg DAILY 04/22/25 Unknown History Allergies Allergy/AdvReac Type Severity Reaction Status Date / Time No Known Allergies Allergy Other Uncoded 04/22/25 15:42 Review of Systems Review of Systems: CONSTITUTIONAL: Reports chills. Denies fever or sweats. EYES: Denies visual changes, redness, or discharge. ENT: Denies rhinorrhea, congestion, sore throat, or otalgia. CARDIOVASCULAR: Denies chest pain, palpitations, or edema. RESPIRATORY: Denies cough or dyspnea. GASTROINTESTINAL: Denies abdominal pain, nausea, vomiting, or diarrhea. GENITOURINARY: Reports pelvic pressure and dysuria. Denies vaginal bleeding/discharge and other urinary symptoms SKIN: Denies rash or itching. MUSCULOSKELETAL: Denies back pain, joint pain, or myalgia. NEUROLOGIC: Denies headache, numbness, dizziness, or weakness. PSYCHIATRIC: Denies anxiety or depression. [facility] Past Medical History Medical History (Updated 07/02/25 @ 09:32 by ZENA Lopez, KERA) Pre-diabetes Hypertension Idiopathic pancreatitis Delivery with history of Surgical History Surgical History History of cholecystectomy Family History Family History (Updated 07/02/25 @ 08:58 by ZENA Lopez, ) Mother Family history non-contributory Social History Social History Smoking status: Never smoker Living arrangements: with family Gender identity (if verbalized by the patient): Female Sexual Orientation (if Verbalized by the Patient): Straight or Heterosexual Spiritual care concerns: No Exam Narrative: GENERAL: Well-appearing, well-nourished, and in no acute distress. HEAD: Normocephalic, atraumatic. EYES: PERRLA and EOMI. ENT: Nares clear, no rhinorrhea or epistaxis. Mucous membranes moist. Oropharynx without tonsillar hypertrophy exudate or other lesions. Bilateral TMs pearly gómez nonbulging NECK: Supple. No adenopathy or masses. No carotid bruits or JVD CHEST: Clear to auscultation. No respiratory distress. No wheezes rales or rhonchi HEART: Regular rate and rhythm. No murmur heard. Normal peripheral pulses. ABDOMEN: Soft, nontender, nondistended, normal active bowel sounds. EXTREMITIES: Normal range of motion. No edema. SKIN: Warm, dry, no rash. NEURO: No focal deficits. Alert and oriented x3. PSYCH: Normal mood and affect. Course Course Emergency Course: this is a 49-year-old female who presented for evaluation of dysuria with a history of urinary tract infections. There is no evidence of UTI today, however she states that in the past she typically has a normal urinalysis on initial visit but she develops a UTI thereafter. I recommended we do a pelvic exam. She declined. She has an upcoming appointment with her OBGYN. Will send urine culture. DC with macrobid. Follow-up with primary care provider and OBGYN. Go to the ER for worsening symptoms. Patient in agreement with plan of care. Level of Care: Express Care Visit Vital Signs Vital signs: Vital Signs Temperature 36.7 C 07/02/25 08:20 Pulse Rate 95 07/02/25 08:20 Respiratory Rate 16 07/02/25 08:20 Blood Pressure 124/77 07/02/25 08:20 Pulse Oximetry 100 07/02/25 08:20 Oxygen Delivery Room Air 07/02/25 08:20 Temperature 36.7 C 07/02/25 08:20 Pulse Rate 95 07/02/25 08:20 Respiratory Rate 16 07/02/25 08:20 Blood Pressure 124/77 07/02/25 08:20 Pulse Oximetry 100 07/02/25 08:20 Oxygen Delivery Room Air 07/02/25 08:20 Medical Decision Making Vital Signs Vital Signs: Vital Signs Temperature 36.7 C 07/02/25 08:20 Pulse Rate 95 07/02/25 08:20 Respiratory Rate 16 07/02/25 08:20 Blood Pressure 124/77 07/02/25 08:20 Pulse Oximetry 100 07/02/25 08:20 Oxygen Delivery Room Air 07/02/25 08:20 Temperature 36.7 C 07/02/25 08:20 Pulse Rate 95 07/02/25 08:20 Respiratory Rate 16 07/02/25 08:20 Blood Pressure 124/77 07/02/25 08:20 Pulse Oximetry 100 07/02/25 08:20 Oxygen Delivery Room Air 07/02/25 08:20 Lab Data Labs: Lab Results 07/02/25 Range/Units 08:29 POC Urine Color Dark POC Urine Clarity Clear POC Urine pH 6.0 POC Ur Specif [place] 1.020 POC Urine Protein Negative (Negative) POC Ur Glucose (UA) Negative (Negative) POC Urine Ketones Negative (Negative) POC Urine Blood Negative (Negative) POC Urine Nitrite Negative (Negative) POC Urine Bilirubin Negative (Negative) POC Urine Urobilinogen 0.2 POC U Leukocyte Esteras Negative (Negative) Discharge Plan Discharge Clinical Impression: Dysuria, History of UTI Patient Disposition: Home Condition: Stable Instructions: Antibiotic Form, Dysuria (ED) Patient Language: Lebanese Prescriptions: New nitrofurantoin monohyd/m-cryst [Macrobid] 100 mg capsule 100 mg PO Q12H 7 Days Qty: 14 0RF Rx Instructions: must administer with a meal/food No Action metformin 1,000 mg tablet 1,000 mg DAILY losartan 50 mg tablet 50 mg PO DAILY Follow-up/Referrals: Orquidea,TANVI Sevilla [Primary Care Provider, Unknown] Time of Disposition: 09:28
[2025-07-02 09:22] LABS: EDUAAPPEAR Clear; EDUABILI Negative (Negative); EDUABLOOD Negative (Negative); EDUACOLOR1 Dark; EDUAGLUCOSE Negative (Negative); EDUAKETONE Negative (Negative); EDUALEUKO Negative (Negative); EDUANITRATE Negative (Negative); EDUAPH 6.0; EDUAPROTEIN Negative (Negative); EDUASPGRAVITY 1.020; EDUAUROBILI 0.2
== END 2025-07-02 09:39 | disposition home or self-care (01) ==
PROVIDERS: Emergency Provider Nurse Practitioner; PCP Physician Assistant
DX: R30.0 Dysuria (principal); Z87.440 Personal history of urinary (tract) infections; I10 Essential (primary) hypertension; R73.03 Prediabetes
CPT/HCPCS: 81003; 87086; 99213; G0463